=== PATIENT | female | born 1950 | race Caucasian/White ===

== ENCOUNTER 2016-06-29 16:12 | Emergency (ER) | payer OTHER ==
[2016-06-29 16:28] VITALS: BP 127/78; PULSE 84; RESP 16; TEMP 98.2; O2SAT 93
--- NOTE | 2016-06-29 16:44 | UCPHY ---
H & P Time Seen by Provider: 06/29/16 16:31 Patient Type: Established HPI/ROS: CHIEF COMPLAINT: Sinus infection HISTORY OF PRESENT ILLNESS: 66-year-old female presenting with complaints that she has a sinus infection. Patient reports developing congestion and nasal discharge followed by pain in the left cheek, extending to the left ear, and left frontal headache. She feels like this is similar to her prior history of sinusitis. She denies any fever. She has had no significant sore throat or cough. No shortness of breath or chest pain. No rash. No dental pain. REVIEW OF SYSTEMS: Aside from elements discussed in the HPI, a comprehensive 10-point review of systems was reviewed and is negative. PAST MEDICAL HISTORY: Hypertension, diabetes SOCIAL HISTORY: Nonsmoker. VITAL SIGNS: see nurse's notes. GENERAL: Well-developed, well-nourished, in no acute distress. Sounds congested. HEENT: Atraumatic Eyes: PERRL, EOMI, no conjunctival injection. Ears: Right TM partially occluded by wax. Left TM clear. No mastoid tenderness to palpation. No signs of otitis externa. Nose: Clear discharge. Mouth: moist mucous membranes. No dental abscess noted. Pharynx: no erythema, no exudates, no swelling, no abscess. Uvula is midline. NECK: Supple, no adenopathy, no meningismus, no tenderness. LUNGS: Clear to auscultation bilaterally, no wheezes, rhonchi or rales. CARDIAC: Regular rate and rhythm, no rubs, murmurs or gallops. ABDOMEN: Soft, nontender, bowel sounds normal. EXTREMITIES: Normal, no edema, FROM. NEURO: Alert and oriented, grossly nonfocal. SKIN: Warm and dry, no rash. PSYCHIATRIC: Normal mentation, no agitation. Smoking Status: Never smoked Constitutional: Initial Vital Signs Temperature (C) 36.8 C 06/29/16 16:26 Heart Rate 84 06/29/16 16:26 Respiratory Rate 16 06/29/16 16:26 Blood Pressure 127/78 H 06/29/16 16:26 O2 Sat (%) 93 06/29/16 16:26 O2 Delivery Mode Room Air Allergies/Adverse Reactions: codeine [Codeine] Allergy (Verified 03/04/15 16:40) haloperidol [From Haldol] Allergy (Verified 03/04/15 16:40) haloperidol lactate [From Haldol] Allergy (Verified 03/04/15 16:40) metoclopramide HCl [From Reglan] Allergy (Verified 03/04/15 16:40) morphine [Morphine] Allergy (Verified 03/04/15 16:40) Penicillins Allergy (Verified 03/04/15 16:40) Sulfa (Sulfonamide Antibiotics) Allergy (Verified 03/04/15 16:40) Home Medications: Medication Instructions Recorded Omeprazole [Prilosec] 07/22/14 Triamterene/Hctz 75/50 [Maxzide 07/22/14 75-50 mg Tab (RX)] clonIDINE 08/09/14 Allopurinol 03/04/15 Clonazepam 03/04/15 Dicyclomine HCl 03/04/15 Metformin HCl 03/04/15 Oxycodone HCl 03/04/15 Sertraline HCl 03/04/15 oxyCODONE/APAP 5/325 [Percocet 1 tab PO Q4-6PRN PRN #15 tab 03/04/15 5/325 (RX)] traZODONE 50MG (RX) 03/04/15 AZITHROMYCIN [Z-PACK] 250 - 500 mg PO DAILY #6 tab 06/29/16 Hydrocodone/APAP 5/325 [[place] 1 tab PO Q6H PRN #10 tab 06/29/16 5/325 (RX)] Medical Decision Making ED Course/Re-evaluation: 66-year-old female reporting that she feels that she has a sinus infection. She has facial pain on the left side. She also has a left frontal headache. Examination is largely unremarkable except for occasional sniffling and clear nasal discharge. Patient was encouraged to obtain Flonase nasal spray, [id number] decongestants, and was placed on amoxicillin for potential sinusitis. She was encouraged to follow up with the primary care physician if she is not improving by the end of the week. She is comfortable with that plan. Differential Diagnosis: Differential diagnoses for the patient's symptom complex was considered including but not limited to sinusitis, otitis externa, malignant otitis externa , otitis media, mastoiditis, dental pain. Departure - Departure Disposition: Home, Routine, Self-Care Clinical Impression: Facial pain Sinusitis Qualifiers: Sinusitis location: maxillary Chronicity: acute Recurrence: not specified as recurrent Qualifier Code: (J01.00) Acute maxillary sinusitis, unspecified Condition: Good Instructions: Rhinosinusitis (ED) Additional Instructions: Mainstay of treatment for sinusitis is to keep the sinus passages open. Decongestants, Flonase nasal spray, and saline washes are all helpful to keep the sinus passages open. A decongestant will help to shrink the mucous membranes keep the sinus passages open. You can obtain a decongestant such as Sudafed or pseudoephedrine over-the -counter. I recommend Flonase nasal spray which will decrease the swelling of the mucous membranes. Saline nasal washes such as a [place] pot are also frequently useful and keeping the sinus passages open. For headache pain or facial pain, We recommend Acetaminophen (Tylenol) and Ibuprofen (Motrin,Advil) for pain and fever control. When fever is high or pain severe, both drugs can be used at the same time, but at different intervals. Please note the time differences. Your dose is: Acetaminophen 650mg every 4 to 6 hours Ibuprofen 600 mg every 6-8 hours with food OR Naproxen Sodium (Aleve) 220 mg every 12 hours. Note: do not take Acetaminophen with Hydrocodone (Vicodin, Lortab) or Oycodone (Percocet). These medications also contain Acetaminophen. No more than 3000mg of Acetaminophen should be taken in 24 hours (for an adult). Please take antibiotic as directed. If not improving as expected with the above treatment, please return to urgent care or seek care with your primary care physician. Referrals: Leny Thomas MD [Primary Care Provider] - As per Instructions Prescriptions: Hydrocodone/APAP 5/325 [[place] 5/325 (RX)] 1 tab PO Q6H PRN #10 tab PRN Reason: Pain AZITHROMYCIN [Z-PACK] 250 - 500 mg PO DAILY #6 tab - PQRS PQRS Measurement: 134: Depression screening and followup, PRIME MCDANIEL-PHQ2 (12 years and older) Over the last 2 weeks, how often have you been bothered by any of the following problems? 1. Feeling down, depressed, or hopeless? 2. Little interest or pleasure in doing things? Patient answered no to both 1 and 2 130: Documentation of medications. Reviewed all patient medications, doses, route and frequency. 226: Do you smoke? No. 47: 65 and older: Advanced care planning. Patient declined answer. 51: 18 years old and older with diagnosis of COPD, spirometry performance. Patient has no history of COPD 52: 18 years old and older with COPD and symptoms of COPD or FEV1<60% predicted prescribed a B Agonist. Patient has no history of COPD
== END 2016-06-29 16:54 | disposition home or self-care (01) ==
LOC: CED 16:12
DX: J01.00 Acute maxillary sinusitis, unspecified (principal); I10 Essential (primary) hypertension; E11.9 Type 2 diabetes mellitus without complications
CPT/HCPCS: G0463-PO